=== PATIENT | female | born 1970 | race Hispanic/Latino ===

== ENCOUNTER 2017-06-29 19:58 | Emergency (ER) | payer BC ==
[~2017-06-29] VITALS: Ht 160 cm; Wt 83.9 kg
[~2017-06-29 19:58] MED LIST: AMOXICILLIN500 MG PO; IBUPROFEN400 MG; KEFLEX500 MG; NORCO 5-325 TA1 EACH PO
== END 2017-06-29 21:58 | disposition home or self-care (01) ==
LOC: ED 19:58
DX: F07.81 Postconcussional syndrome (principal)
CPT/HCPCS: 70450; 72125; 99284